=== PATIENT | female | born 1965 | race Caucasian/White ===

== ENCOUNTER 2018-12-17 09:06 | Emergency (ER) | payer SELFPAY ==
[~2018-12-17] VITALS: Ht 160 cm; Wt 66.2 kg
[~2018-12-17 09:06] MED LIST: ACET1TAB40 PO; IBUP-1541 PO
[2018-12-17 09:19] VITALS: BP 127/98; PULSE 72; RESP 20; Ht 160 cm; Wt 66.2 kg
[2018-12-17] MEDS ORDERED: KETOROLAC 30 MG INJ IM STA (10:28)
[2018-12-17] MEDS ORDERED: METHOCARBAMOL 750 MG TAB PO ONE (10:30)
[2018-12-17] MEDS ORDERED: DEXAMETHASONE 10 MG/ML 1 ML INJ IM ONE (10:30)
[2018-12-17] MEDS ORDERED: METH750T93 PO (12:12)
[2018-12-17] MEDS ORDERED: IBUP-1542 PO (12:12)
--- NOTE | 2018-12-17 12:15 | ERD ---
ER Documentation Chief Complaint Chief Complaint C/O BOTH SHOULDER AND UPPER BACK PAIN FOR 5 DAYS ROS All systems reviewed and are negative except as per history of present illness. Medications Home Meds Active Scripts Methocarbamol* (Robaxin*) 750 Mg Tablet, 750 MG PO TID PRN for muscle spasm, #30 TAB Prov:KENNA GREER DO 12/17/18 Ibuprofen* (Motrin*) 600 Mg Tab, 600 MG PO Q6H PRN for PAIN AND OR ELEVATED TEMP, #30 TAB Prov:KENNA GREER DO 12/17/18 Ibuprofen* (Ibuprofen*) 400 Mg Tablet, 400 MG PO Q6H PRN for PAIN, #20 TAB Prov:YADIRA MORENOC 12/03/15 Acetaminophen-Codeine* (Acetaminophen-Cod #3*) 300-30 Mg Tab, 1 TAB PO Q4H PRN for PAIN, #20 TAB Prov:YADIRA MORENOC 12/03/15 Allergies Allergies: Coded Allergies: No Known Allergy (Unverified , 12/17/18) PMhx/Soc Medical and Surgical Hx: pt denies Medical Hx, pt denies Surgical Hx History of Surgery: No Anesthesia Reaction: No Hx Neurological Disorder: No Hx Respiratory Disorders: No Hx Cardiac Disorders: No Hx Psychiatric Problems: No Hx Miscellaneous Medical Probl: No Hx Alcohol Use: No Hx Substance Use: No Hx Tobacco Use: No Smoking Status: Never smoker Physical Exam Vitals Vital Signs Date Temp Pulse Resp B/P (MAP) Pulse Ox O2 O2 Flow FiO2 Time Delivery Rate 12/17/18 97.3 72 20 127/98 98 09:19 (108) Physical Exam Const: No acute distress Head: Atraumatic Eyes: Normal Conjunctiva ENT: Normal External Ears, Nose and Mouth. Neck: Full range of motion. No meningismus. Resp: Clear to auscultation bilaterally Cardio: Regular rate and rhythm, no murmurs Abd: Soft, non tender, non distended. Normal bowel sounds Skin: No petechiae or rashes Back: No midline or flank tenderness Ext: No cyanosis, or edema Neur: Awake and alert Psych: Normal Mood and Affect Results 24 hrs Current Medications Medications Dose Sig/Alcira Start Time Status Last (Trade) Ordered Route PRN Stop Time Admin Dose Reason Admin 10 mg ONCE ONCE 12/17/18 DC 12/17/18 Dexamethasone IM 10:30 11:13 (Decadron) 12/17/18 10:31 Ketorolac 30 mg ONCE STAT 12/17/18 DC 12/17/18 Tromethamine IM 10:28 11:12 (Toradol) 12/17/18 10:29 750 mg ONCE ONCE 12/17/18 DC 12/17/18 Methocarbamol PO 10:30 11:12 (Robaxin) 12/17/18 10:31 Departure Diagnosis: Primary Impression: Back pain Back pain location: low back pain Chronicity: acute Back pain laterality: unspecified Sciatica presence: unspecified whether sciatica present Qual ified Codes: M54.5 - Low back pain Condition: Fair Patient Instructions: Back Pain (Acute Or Chronic) Referrals: [facility] YOU HAVE RECEIVED A MEDICAL SCREENING EXAM AND THE RESULTS INDICATE THAT YOU DO NOT HAVE A CONDITION THAT REQUIRES URGENT TREATMENT IN THE EMERGENCY DEPARTMENT. FURTHER EVALUATION AND TREATMENT OF YOUR CONDITION CAN WAIT UNTIL YOU ARE SEEN IN YOUR DOCTORS OFFICE WITHIN THE NEXT 1-2 DAYS. IT IS YOUR RESPONSIBILITY TO MAKE AN APPOINTMENT FOR FOLOW-UP CARE. IF YOU HAVE A PRIMARY DOCTOR --you should call your primary doctor and schedule an appointment IF YOU DO NOT HAVE A PRIMARY DOCTOR YOU CAN CALL OUR PHYSICIAN REFERRAL HOTLINE AT IF YOU CAN NOT AFFORD TO SEE A PHYSICIAN YOU CAN CHOSE FROM THE FOLLOWING [facility] [address] [facility]. [facility] [address] [facility] [facility] [address] [facility] [address] [facility]. [facility] [address] [facility]. [facility]. [address] Additional Instructions: Llame al doctor MAANA y zelda jayshree MEGGAN PARA DENTRO DE 1-2 MERCADO.Dgale a la secretaria que nosotros le instruimos hacer esta meggan.Avise o llame si james condicin se empeora antes de la meggan. Regresa aqui si peor o no mejor. KENNA GREER DO Dec 17, 2018 12:15
== END 2018-12-17 12:43 | disposition home or self-care (01) ==
LOC: FTE 09:06
DX: M54.5 Low back pain (principal)
CPT/HCPCS: 96372; 99284; J1100; J1885

== ENCOUNTER 2018-12-19 10:58 | Emergency (ER) | payer SELFPAY ==
[~2018-12-19] VITALS: Ht 167.6 cm; Wt 65.5 kg
[~2018-12-19 10:58] MED LIST changes: +IBUP-1542 PO; +METH750T93 PO
[2018-12-19 11:01] VITALS: BP 136/80; PULSE 71; RESP 20; Ht 167.6 cm; Wt 65.5 kg
[2018-12-19] MEDS ORDERED: HYDR-4011 PO ×2 (12:32→12:40)
--- NOTE | 2018-12-19 12:39 | ERD ---
ER Documentation Chief Complaint Chief Complaint Complains of back and shoulder pain since yesterday HPI 53-year-old female presents for left shoulder pain times 2 weeks. She was here in the ER about 2 days ago for the same symptoms. She was discharged with Motrin and Robaxin. She states that the Robaxin has been causing her some side effects. 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 ROS All systems reviewed and are negative except as per history of present illness. Medications Home Meds Active Scripts Hydrocodone/Acetaminophen ([place] 5-325 Tablet) 1 Each Tablet, 1 TAB PO Q6H PRN for PAIN, #15 TAB Prov:KENNA GREER 12/19/18 Methocarbamol* (Robaxin*) 750 Mg Tablet, 750 MG PO TID PRN for muscle spasm, #30 TAB Prov:KENNA GREER 12/17/18 Ibuprofen* (Motrin*) 600 Mg Tab, 600 MG PO Q6H PRN for PAIN AND OR ELEVATED TEMP, #30 TAB Prov:GREERKENNA 12/17/18 Ibuprofen* (Ibuprofen*) 400 Mg Tablet, 400 MG PO Q6H PRN for PAIN, #20 TAB Prov:YADIRA MORENO-C 12/03/15 Acetaminophen-Codeine* (Acetaminophen-Cod #3*) 300-30 Mg Tab, 1 TAB PO Q4H PRN for PAIN, #20 TAB Prov:YADIRA MORENO-C 12/03/15 Allergies Allergies: Coded Allergies: No Known Allergy (Unverified , 12/17/18) PMhx/Soc Medical and Surgical Hx: pt denies Medical Hx, pt denies Surgical Hx History of Surgery: No Anesthesia Reaction: No Hx Neurological Disorder: No Hx Respiratory Disorders: No Hx Cardiac Disorders: No Hx Psychiatric Problems: No Hx Miscellaneous Medical Probl: No Hx Alcohol Use: No Hx Substance Use: No Hx Tobacco Use: No Smoking Status: Never smoker Physical Exam Vitals Vital Signs Date Temp Pulse Resp B/P (MAP) Pulse Ox O2 O2 Flow FiO2 Time Delivery Rate 12/19/18 97.6 71 20 136/80 99 11:01 (98) Physical Exam Const: No acute distress Resp: Clear to auscultation bilaterally Cardio: Regular rate and rhythm, no murmurs, bilateral radial pulses intact Abd: Soft, non tender, non distended. Normal bowel sounds Skin: No petechiae or rashes Back: No midline or flank tenderness Ext: No cyanosis, or edema, 5 out of 5 muscle strength bilateral upper and lower extremities however there is some pain with left shoulder movement noted to be mild. There is some mild tenderness palpation of the left shoulder area. Neur: Awake and alert, bilateral upper and lower extremity sensation intact Psych: Normal Mood and Affect Procedures/MDM Medical Decision Making: Differential diagnosis includes but not limited to muscle strain, ligamentous sprain, dislocation, fracture Patient appeared well on physical exam. Patient was able to move her left upper extremity however there is mild pain to movement. Patient neurovascular intact Patient likely has some type of ligamentous sprain versus muscle strain due to chronic overuse. Prescription(s): Patient given prescription for [place] low-dose short course. Patient advised to use warm compresses over the left shoulder. Patient given note for light duty for 2 weeks. Patient advised to follow up with PCP in 1-2 days. Patient advised to return to ED for new or worsening symptoms. Patient stable on discharge from the ED. The patient has been prescribed [place] during this encounter. The patient has been warned about the use of narcotics. The patient should not drive or operate heavy machinery while taking this medication. The patient was also warned about the addictive properties of narcotic medications. Narcan prescription was NOT provided given the following criteria 1. No more than 5 tablets of [place] 10 mg or 10 tablets of [place] 5 mg were prescribed. 2. Concomitant opiate and benzodiazepine prescriptions were not provided. 3. There is no obvious evidence of prior history of opiate abuse or overdose. Disclaimer: Inadvertent spelling and grammatical errors are likely due to EHR/dictation software use and do not reflect on the overall quality of patient care. Also, please note that the electronic time recorded on this note does not necessarily reflect the actual time of the patient encounter. Departure Diagnosis: Primary Impression: Left shoulder pain Condition: Fair Patient Instructions: Shoulder Problems Referrals: [facility] YOU HAVE RECEIVED A MEDICAL SCREENING EXAM AND THE RESULTS INDICATE THAT YOU DO NOT HAVE A CONDITION THAT REQUIRES URGENT TREATMENT IN THE EMERGENCY DEPARTMENT. FURTHER EVALUATION AND TREATMENT OF YOUR CONDITION CAN WAIT UNTIL YOU ARE SEEN IN YOUR DOCTORS OFFICE WITHIN THE NEXT 1-2 DAYS. IT IS YOUR RESPONSIBILITY TO MAKE AN APPOINTMENT FOR FOLOW-UP CARE. IF YOU HAVE A PRIMARY DOCTOR --you should call your primary doctor and schedule an appointment IF YOU DO NOT HAVE A PRIMARY DOCTOR YOU CAN CALL OUR PHYSICIAN REFERRAL HOTLINE AT IF YOU CAN NOT AFFORD TO SEE A PHYSICIAN YOU CAN CHOSE FROM THE FOLLOWING [facility] CLINICS [facility] [address] [facility] [address] [facility] [facility] [address] [facility] [address] [facility]. [facility] [address] [facility]. [facility] [address] Additional Instructions: Llame al doctor MAANA y zelda jayshree MEGGAN PARA DENTRO DE 1-2 MERCADO.Dgale a la secretaria que nosotros le instruimos hacer esta meggan.Avise o llame si james condicin se empeora antes de la meggan. Regresa aqui si peor o no mejor. KENNA GREER DO Dec 19, 2018 12:39
== END 2018-12-19 12:48 | disposition home or self-care (01) ==
LOC: FTE 10:58
DX: M25.512 Pain in left shoulder (principal)
CPT/HCPCS: 99283